=== PATIENT | female | born 1965 | race Caucasian/White ===

== ENCOUNTER 2016-12-21 10:55 | Outpatient (CLI) | payer BC ==
--- NOTE | 2016-12-21 12:36 | MMO ---
BILATERAL DIGITAL SCREENING MAMMOGRAMS: Date: 12/21/16 HISTORY: 51-year-old female presents for digital screening mammogram. COMPARISON: 06/10/15, 08/22/12, 07/27/10. FINDINGS: This patient's mammogram was interpreted with the assistance of computer-aided detection. Mild scattered fibroglandular changes with mostly fatty change. Bilateral stable typically benign ca lcifications. No direct or indirect evidence of malignancy. IMPRESSION: BIRADS 2: Benign Finding(s) Continue routine screening. POS: CALEB
== END 2016-12-21 10:56 | disposition home or self-care (01) ==
LOC: SCSMAMMO 10:55
PROVIDERS: ATTEND Family Medicine
DX: Z12.31 Encounter for screening mammogram for malignant neoplasm of breast (principal)
CPT/HCPCS: 77067; G0202

== ENCOUNTER 2019-08-03 07:03 | Emergency (ER) | payer BC, OTHER ==
[2019-08-03] MEDS ORDERED: diphenhydrAMINE 50 MG/ML VIAL ONE (07:50)
[2019-08-03] MEDS ORDERED: Metoclopramide HCl 10 MG/2 ML VIAL ONE (07:50)
[2019-08-03] MEDS ORDERED: Ketorolac Tromethamine 30 MG/ML VIAL ONE (07:50)
== END 2019-08-03 09:56 | disposition home or self-care (01) ==
LOC: ERS 07:03
DX: R51 Headache (principal); F41.9 Anxiety disorder, unspecified; F32.9 Major depressive disorder, single episode, unspecified; F17.210 Nicotine dependence, cigarettes, uncomplicated; Z79.899 Other long term (current) drug therapy
CPT/HCPCS: 96365; 96375; J1200; J1885; J2765

== ENCOUNTER 2019-08-08 09:29 | Outpatient (CLI) | payer BC ==
--- NOTE | 2019-08-08 12:24 | CT ---
CT BRAIN WITHOUT CONTRAST: COMPARISON: None. HISTORY: Right-sided frontal headache for 2 weeks. TECHNIQUE: Multiple contiguous axial images were obtained in a CT of the brain without contrast. FINDINGS: The brain is normal in morphology and attenuation without focal lesions or confluent areas of infarct ion. There is no evidence of hydrocephalus, intracranial hemorrhage, or extraaxial fluid collection. The calvarium and overlying soft tissues are unremarkable. The visualized paranasal sinuses and mast oid air cells are well aerated. IMPRESSION: No evidence of acute intracranial abnormality. POS: RAYMONDA
== END 2019-08-08 09:30 | disposition home or self-care (01) ==
LOC: CT 09:29
PROVIDERS: ATTEND Family Medicine
DX: R51 Headache (principal)
CPT/HCPCS: 70450

== ENCOUNTER 2019-12-09 07:28 | Outpatient (CLI) | payer BC, OTHER ==
[2019-12-09 11:15] LABS: #Basophils 0.1 thou/uL (0.0-0.2); #Eosinphils 0.2 thou/uL (0.0-0.7); #Lymphocytes 2.2 thou/uL (1.20-3.40); #Monocytes 0.4 thou/uL (0.11-0.59); #Neutrophils 3.2 thou/uL (1.40-6.50); %Basophils 0.9 % (0.0-1.0); %Eosinophils 2.8 % (0.0-10.0); %Lymphocytes 36.2 % (21.0-51.0); %Neutrophils 53.1 % (42.0-75.0); Hemoglobin 15.5 g/dL (12.0-16.0); Mean Corpuscular HGB CONC 33.3 g/dL (32.0-36.0); Mean Corpuscular Hemoglobin 29.3 pg (27.0-31.0); Mean Corpuscular Volume 88.1 fL (78.0-98.0); Mean Platelet Volume 10.9 fL (7.4-10.4); Platelet Count 177 thou/uL (130-400); RBC Distribution Width 11.9 % (11.5-14.5); Red Blood Cell (RBC) Count 5.29 mill/uL (4.20-5.40)
[2019-12-09 11:26] LABS: Bacteria/HPF None Seen HPF (None Seen); Bilirubin Negative (Negative); Blood, Urine Negative (Negative); Clarity Clear (Clear); Glucose, Urine (Dipstick) Normal (Negative); Ketone, Urine Negative (Negative); Leukocyte Negative Leu/uL (Negative); Nitrite Negative (Negative); Protein, Urine (Dipstick) Negative (Neg-Trace); RBC/HPF 0-3 HPF (0-3); Specific Gravity, Urine 1.022 (1.002-1.036); Squamous Epithelial 0-3 HPF (0-3); Urobilinogen Normal mg/dL (Less than 2); WBC/HPF 0-3 HPF (0-3); pH, Urine 8.5 (5.0-9.0)
[2019-12-09 19:12] LABS: SARS-CoV-2 MS2 Positive; SARS-CoV-2 N Gene Negative; SARS-CoV-2 S Gene Negative; SARS-CoV-2 by NAA Not Detected (NotDetected); SARS-CoV-2 orf1ab Negative
== END 2019-12-09 07:29 | disposition home or self-care (01) ==
LOC: LABBT 07:28
PROVIDERS: ATTEND Orthopaedic Surgery Hand Surgery
DX: Z01.812 Encounter for preprocedural laboratory examination (principal); M65.4 Radial styloid tenosynovitis [de Quervain]; M18.11 Unilateral primary osteoarthritis of first carpometacarpal joint, right hand; M25.331 Other instability, right wrist; Z20.828 Contact with and (suspected) exposure to other viral communicable diseases
CPT/HCPCS: 81001; 85025; 87635; U0003

== ENCOUNTER 2019-12-12 05:56 | Day surgery (SDC) | payer BC ==
[2019-12-11 08:42] VITALS: BMI 34.0
[2019-12-12] MEDS ORDERED: Bacitracin Zinc Ointment 30 gm TUBE ONE (06:21)
[2019-12-12] MEDS ORDERED: Thrombin 5000 UNITS/5 ML VIAL ONE (06:21)
[2019-12-12] MEDS ORDERED: Bupivacaine PF 0.5% 30 ML VIAL ONE (06:21)
[2019-12-12] MEDS ORDERED: Midazolam HCl 2 mg/2 ml Vial ONE ×2 (06:23→06:24)
[2019-12-12] MEDS ORDERED: Fentanyl 100 MCG/2 ML VIAL ONE ×2 (06:23→06:25)
[2019-12-12] MEDS ORDERED: EPINEPHrine 1 MG/ML AMP ONE (07:50)
[2019-12-12] MEDS ORDERED: Phenylephrine 10 MG/ML VIAL ONE (08:26)
[2019-12-12] MEDS ORDERED: Betamet Acet/Betamet Na Ph 30 MG/5 ML VIAL ONE (08:33)
[2019-12-12] MEDS ORDERED: HYDROcodone/Acetaminophen 5/325 mg Tablet ONE (11:50)
--- NOTE | 2019-12-12 12:03 | RAD ---
RIGHT WRIST: 4 fluoroscopic images presented from OR. INDICATION: Intraoperative imaging during right wrist arthroplasty. FINDINGS/IMPRESSION: Intraoperative images demonstrate right wrist arthroplasty procedure. POS: AGW
--- NOTE | 2019-12-15 08:14 | OP ---
DATE OF PROCEDURE: 12/12/2019 BOILER COVERER HELPER: Mook Brown, MS-3, [facility] and [facility]. POSTOPERATIVE DIAGNOSES AND FINDINGS: 1. No scapholunate tear seen via scope, completely visualized the area. 2. Synovitis, marked in the wrist. 3. No osteochondral loose bodies in the wrist but marked osteophytes and complete obliteration of the chondral surface of the base of the thumb metacarpal and the trapezium. PROCEDURES PERFORMED: 1. Right wrist arthroscopic synovectomy. 2. Right wrist open trapeziectomy. 3. Right wrist at the thumb, right carpometacarpal joint using the flexor carpi radialis complete tendon. 4. Extensor tenosynovectomy of first dorsal compartment. 5. De Quervain release of first dorsal compartment. 6. Excision of ganglion, palmar wrist, 1 cm. TOURNIQUET TIME: 123 minutes. ESTIMATED BLOOD LOSS: 20 mL. DESCRIPTION OF PROCEDURE: After successful general endotracheal anesthesia, the limb was prepped and draped. The patient had a block done approximately 15 minutes before coming to the room, and it was very effective during the procedure. We placed the patient in the arm traction because of the question of possible scapholunate complete tear versus incomplete healing with only minimal separation compared to the opposite side. Once we established the in-line traction, the 2, 3 portals and the 6U and 6R were used alternating as both working and visualization portals. We saw marked synovitis on placing the scope in, so we trimmed the synovitis in an incomplete synovectomy. We then probed the scaphoid chondral surface normal, the subchondral area, and then the ligaments. Scapholunate ligament had at the base of the synovitis a small area of fraying of approximately 2 mm x 3 mm, but no tear seen. Thus secondary to stretch or healing/stretch from previous injury. We finished the synovectomy. Inspected triangular fibrocartilage in all aspects, it was normal. The lunotriquetral ligament, scapholunate ligament and the capitate area were all normal. The patient had the arthroscope removed, closed the portals, and then we exsanguinated the limb. We began with a zigzag incision with first dorsal compartment, carried through skin and subcutaneous tissue until we saw the superficial radial nerve branch, we preserved them well. Then, we released the first dorsal compartment in the junction of the dorsal 1/3 and palmar 2/3. The retinaculum was thick, but there were four sleeves of the abductor pollicis longus and marked tenosynovitis. We performed a radical flexor tenosynovectomy of specimen, which was sent to the lab. We closed that incision with a simple 4-0 nylon. We then outlined a curvilinear hockey stick shaped incision over the first metacarpal base, trapezium and then towards the FCR. We kept the tourniquet inflated, we made incision and carried through skin and subcutaneous tissue, the internervous planes from each other, we were able to visualize the thenar muscles at musculotendinous junction. We lifted it here up with a Solomon blade, we retracted the two tendons from the first dorsal compartment including the sleeves and released the joint capsule, dissecting outside of both tendons. We tagged this with 2-0 Vicryl for later closure. We then extended the incision palmarly until we visualized the flexor carpi radialis and protected it completely, releasing all the palmar elements. Once we had done this, C-arm was brought onto the field and we confirmed we were working on the trapezium. We placed a corkscrew into the trapezium and then slowly lifted it out without damage. We placed a heavy 3-0 Prolene in the posterior medial capsule for later use to make the anchovy weave. Once we had accomplished this, we then placed a guidewire from [employer] obliquely, from the center of the lateral portion of the thumb metacarpal to a point just 3 mm deep to the dorsal edge of the dorsal surface. We drilled over this for 2.7 drill and 3.0 drill and widened to approximately 4 mm by using progressive curettes. We then turned our attention to the forearm, we made 2 incisions 1/3 away from the wrist flexion crease portion of the FCR to the elbow and another residential between that one. We then harvested tendon using appropriate zigzag incision and technique, trimmed the tendon to a size which was about 2/3 the size before and then passed into the wrist. We then passed it into the drill holes created in the thumb, maintaining the tension on both the graft and the thumb. The thumb was pinned x1 with a 0.045-inch K-wire. The K-wire had excellent feel and on radiographs, was in excellent position, maintained height in AP and lateral directions. The patient then had the tourniquet deflated after six sutures to the thumb with this tendon once passed through the tunnel and the anchovy weave was created with the Saji needles. It was then buried deep to all tendons, closed the capsule over it as outlined before and then obtained hemostasis for the final time. We irrigated the wounds, then we closed the wounds at the zigzag points with interrupted 4-0 Monocryl. 4-0 nylon was used to close the epidermis and 2-0 Vicryl was used to close the capsule as well as the fascia at the distal incision. All epidermis was closed with interrupted 4-0 nylon in simple pattern. Bulky dressing applied along with a thumb spica splint, and the patient left the operating room without evidence of anesthetic or operative complication. Job ID: [id number]
== END 2019-12-12 13:05 | disposition home or self-care (01) ==
LOC: SDC 05:56
PROVIDERS: ATTEND Orthopaedic Surgery Hand Surgery
PROC: 0RQN0ZZ Repair Right Wrist Joint, Open Approach (ICD-10-PCS; principal; 2019-12-12)
PROC: 0LX50ZZ Transfer Right Lower Arm and Wrist Tendon, Open Approach (ICD-10-PCS; principal; 2019-12-12)
PROC: 0RBN4ZZ Excision of Right Wrist Joint, Percutaneous Endoscopic Approach (ICD-10-PCS; principal; 2019-12-12)
PROC: 0LB50ZZ Excision of Right Lower Arm and Wrist Tendon, Open Approach (ICD-10-PCS; principal; 2019-12-12)
DX: M18.11 Unilateral primary osteoarthritis of first carpometacarpal joint, right hand (principal); M65.4 Radial styloid tenosynovitis [de Quervain]; M67.431 Ganglion, right wrist; M25.731 Osteophyte, right wrist; Z79.899 Other long term (current) drug therapy
CPT/HCPCS: 76000; 88304; 88305; 89060; C1713; C1769; J0171; J0690; J0702; J2250; J2370; J3010; J3490; S0020